=== PATIENT | male | born 1965 | race Caucasian/White ===

== ENCOUNTER 2017-12-27 07:26 | Emergency (ER) | payer OTHER ==
[~2017-12-27] VITALS: Ht 177.8 cm; Wt 127.0 kg
[2017-12-27 07:38] VITALS: BP 123/65
[2017-12-27] MEDS ORDERED: CYCLOBENZAPRINE 10 MG TABLET ONE (07:45)
[2017-12-27] MEDS ORDERED: IBUPROFEN 600 MG TABLET PO ONE ×2 (07:46→08:00)
[2017-12-27] MEDS ORDERED: CYCLOBENZAPRINE 10 MG TABLET PO ONE (08:00)
== END 2017-12-27 07:52 | disposition home or self-care (01) ==
LOC: ER 07:30
DX: S16.1XXA Strain of muscle, fascia and tendon at neck level, initial encounter (principal); X58.XXXA Exposure to other specified factors, initial encounter; Y93.89 Activity, other specified; Y92.89 Other specified places as the place of occurrence of the external cause; Y99.8 Other external cause status
CPT/HCPCS: 99283; A4606; Z7610

== ENCOUNTER 2019-04-30 10:54 | Emergency (ER) | payer OTHER ==
[~2019-04-30] VITALS: Ht 177.8 cm; Wt 117.9 kg
--- NOTE | 2019-04-30 11:05 | NUR ---
PT CAME INTO THE ED C/O COUGH AND CONGESTION X 2 DAYS. PT ENDORSES SORE THROAT WELL. PT AAOX4, VSS, RESPIRATIONS EVEN AND UNLABORED ON ROOM AIR W/ NAD NOTED. CONNECTED TO THE MONITOR AND POX.
[2019-04-30] MEDS ORDERED: ALBUTEROL FS 2.5 MG/3 ML VIAL.NEB NEB ONE (11:30)
[2019-04-30] MEDS ORDERED: IPRATROPIUM NEB FS 0.5 MG/2.5 ML AMPUL.NEB NEB ONE (11:30)
[2019-04-30] MEDS ORDERED: predniSONE 20 MG TABLET PO ONE (11:30)
[2019-04-30] MEDS ORDERED: IPRATROPIUM NEB FS 0.5 MG/2.5 ML AMPUL.NEB ONE (11:30)
[2019-04-30] MEDS ORDERED: ALBUTEROL FS 2.5 MG/3 ML VIAL.NEB ONE (11:30)
[2019-04-30] MEDS ORDERED: predniSONE 20 MG TABLET ONE (11:35)
--- NOTE | 2019-04-30 13:15 | NUR ---
PT AGITATED. VERBALLY ABUSIVE TO MD AND STAFF. REFUSED TO SIGN PAPER WORK AND TOOK IT.
--- NOTE | 2019-04-30 13:16 | NUR ---
REFUSED PATIENT EDUCATION. GIVEN DISCHARGE INSTRUCTIONS IN STABLE CONDITION.
[2019-04-30 13:39] VITALS: BP 138/67
== END 2019-04-30 13:40 | disposition home or self-care (01) ==
LOC: ER 10:55
DX: J44.1 Chronic obstructive pulmonary disease with (acute) exacerbation (principal); J18.9 Pneumonia, unspecified organism; F17.200 Nicotine dependence, unspecified, uncomplicated
CPT/HCPCS: 71045; 94640; 99283; 99406; J7512

== ENCOUNTER 2025-04-17 12:09 | Emergency (ER) | payer MEDICAID, OTHER ==
[~2025-04-17] VITALS: Ht 177.8 cm; Wt 111.1 kg
[2025-04-17 12:17] VITALS: BP 126/81; TEMP 98.1
[2025-04-17] MEDS ORDERED: CLOT15CR27 TP (12:53)
[2025-04-17] MEDS ORDERED: MUPI1OIN5 TP (12:53)
[2025-04-17] MEDS ORDERED: AMOX500T2 PO (12:53)
[2025-04-17 12:56] VITALS: O2SAT 99
== END 2025-04-17 12:57 | disposition home or self-care (01) ==
LOC: ER 12:09
DX: R21 Rash and other nonspecific skin eruption (principal); Z85.51 Personal history of malignant neoplasm of bladder